=== PATIENT | female | born 1985 | race Caucasian/White ===

== ENCOUNTER → 2016-09-23 | Outpatient (CLI) | payer OTHER | LOC: KOH-I 14:08 | DX: M54.89 Other dorsalgia (principal) | CPT/HCPCS: 72110 ==

== ENCOUNTER → 2016-09-28 | Outpatient (CLI) | payer OTHER | LOC: KOH-I 15:06 | DX: M54.9 Dorsalgia, unspecified (principal) | CPT/HCPCS: 72050; 72070 ==

== ENCOUNTER → 2016-11-04 | Outpatient (CLI) | payer OTHER | LOC: HEART 5 08:30 | DX: R55 Syncope and collapse (principal) | CPT/HCPCS: 93306 ==